=== PATIENT | female | born 1970 | race Caucasian/White ===

== ENCOUNTER 2017-02-28 09:09 | Emergency (ER) | payer OTHER ==
[2017-02-28] MEDS ORDERED: DEXAMETHASONE 10 MG/ML VIAL PO STA (10:37)
[2017-02-28] MEDS ORDERED: CHERRY SYRUP 10 ML UDC PO ONE (10:40)
[2017-02-28] MEDS ORDERED: DEXAMETHASONE 10 MG/ML VIAL ONE (10:40)
== END 2017-02-28 10:56 | disposition home or self-care (01) ==
DX: M54.42 Lumbago with sciatica, left side (principal)
CPT/HCPCS: 99283; A9270

== ENCOUNTER 2017-03-22 11:55 | Outpatient (CLI) | payer OTHER ==
--- NOTE | 2017-03-22 22:04 | MRI Report ---
EXAM: MRI THORACIC SPINE WITHOUT CONTRAST EXAM DATE: 03/22/2017 12:55 PM. CLINICAL HISTORY: Low back pain. COMPARISONS: None. TECHNIQUE: Multiplanar, multisequence T1-weighted and fluid-sensitive sequences of the thoracic spine from C7 to L1 without contrast. Other: None. FINDINGS: There is normal alignment of the thoracic spine. There is a mild decrease in the height of the disk w ith desiccation at T11-T12. The conus terminates at T12-L1 and is normal. There are hemangiomas present within the T6 and T11 vertebral bodies. The thoracic aorta is of normal caliber. There is a hiatal hernia partially in the provided field of view. There is no significant atrophy of the paraspinal musculature at the psoas musculature. The kid neys are without evidence of hydronephrosis. The spleen exhibits normal signal intensities. The right lobe of the liver in the provided field of view exhibits grossly normal signal intensities. T1-T2: There is no significant disk bulge, central or foraminal stenosis. The facets are normal. T2-T3: There is no significant disk bulge, central or foraminal stenosis. The facets are normal. T3-T4: There is no significant disk bulge, central or foraminal stenosis. The facets are normal. T4-T5: There is a minimal central protrusion of the disk without significant central or foraminal robby nosis. There is minimal right facet arthropathy. There is no significant foraminal stenosis. T5-T6: There is no significant disk bulge, central or foraminal stenosis. The facets are normal. T6-T7: There is no significant disk bulge, central or foraminal stenosis. The facets are normal. T7-T8: There is no significant disk bulge, central or foraminal stenosis. The facets are normal. T8-T9: There is no significant disk bulge, central or foraminal stenosis. The facets are normal. T9-T10: There is no significant disk bulge, central or foraminal stenosis. The facets are normal. T10-T11: There is no significant disk bulge, central or foraminal stenosis. The facets are normal. T11-T12: There is a small disk osteophyte complex abutting the sac producing a minimal central canal stenosis. There is a small left facet effusion. There is no significant foraminal stenosis. T12-L1: There is a small disk bulge abutting the sac producing a minimal central canal stenosis. Ther e is no significant foraminal stenosis. IMPRESSION: 1. There is a minimal central protrusion of the disk without significant central or foraminal stenosi s at T4-T5. 2. There is a small disk osteophyte complex at T11-T12 producing a minimal central canal stenosis. 3. There is a small disk bulge at T12-L1 producing a minimal central canal stenosis. 4. There is a moderate to large hiatal hernia. Referring Provider Line: [phone] SITE ID: [id number]
--- NOTE | 2017-03-23 13:11 | MRI Report ---
EXAM: MRI LUMBAR SPINE WITHOUT CONTRAST EXAM DATE: 03/22/2017 12:39 PM. CLINICAL HISTORY: Acute on chronic mid to low back pain radiating into the left thigh. COMPARISON: MRI of the lumbar spine without contrast 01/12/2011. TECHNIQUE: Multiplanar, multisequence T1-weighted and fluid-sensitive sequences of the lumbar spine f rom T12 to S1 without contrast. Other: None. FINDINGS: There is slight accentuation of the normal lumbar lordosis. There is a mild decrease in the height of the disk with desiccation at T11-T12, L1-L2, rkuj-gk-xvcrdm te at L2-L3 and L4-L5. There is associated desiccation at these levels. There is a mixture of Modic type I and type II endplate degenerative change within the L2-L3 and L4-L 5 endplates. The conus terminates at the superior endplate level of L1 and is normal. There is no significant atrophy of the paraspinal musculature and the psoas musculature. The abdomina l aorta is of normal caliber. L1-L2: There is a small disk bulge abutting the sac producing a minimal central canal stenosis. There is no significant foraminal stenosis. There is no significant change at this level. L2-L3: There is a small disk bulge abutting the sac producing a mild central canal stenosis. The face ts are normal. There is mild to moderate left and mild right neural foraminal narrowing. There has be en mild progression of the left foraminal stenosis which previously was mild. L3-L4: There is no significant disk bulge, central or foraminal stenosis. The facets are normal. L4-L5: There is a small disk bulge abutting the sac producing a minimal central canal stenosis. There is minimal right facet arthropathy. There is mild right and minimal left neural foraminal narrowing. There is no significant change at this level. L5-S1: There is a minimal disk bulge abutting the sac without significant central canal stenosis. The re is minimal bilateral facet arthropathy. There is no significant foraminal stenosis. There is no si gnificant change at this level. IMPRESSION: 1. There is a small disk bulge abutting the sac at L2-L3 producing a mild central canal stenosis. The re is a rrfk-ht-ucnxdudf degree of left foraminal stenosis which previously was mild. Therefore there has been slight progression. 2. There is an unchanged small disk bulge producing a minimal central canal stenosis at L1-L2. Likewi se, there is an unchanged minimal central canal stenosis at L4-L5 from small disk bulge abutting the sac. 3. There is an unchanged minimal disk bulge at L5-S1 without significant central canal stenosis. Comment: The following findings are so common in adults without low back pain that while we report th eir presence, they must be interpreted with caution and in the context of the clinical situation. (Re garrison Edwards et al, Spine 2001) Prevalence of findings in patients without low back pain: Disk degeneration (any evidence): 92% Disk desiccation/T2 signal loss: 83% Disk height loss: 56% Disk bulge: 64% Disk protrusion: 32% Annular tear/high intensity zone: 38% [facility] Referring Provider Line: [phone] SITE ID: [id number]
== END 2017-03-22 11:56 | disposition home or self-care (01) ==
LOC: DI 11:55
PROVIDERS: ATTEND Nurse Practitioner Family
DX: M51.36 Other intervertebral disc degeneration, lumbar region (principal); M47.897 Other spondylosis, lumbosacral region; M51.34 Other intervertebral disc degeneration, thoracic region; M51.24 Other intervertebral disc displacement, thoracic region; K44.9 Diaphragmatic hernia without obstruction or gangrene; M47.894 Other spondylosis, thoracic region
CPT/HCPCS: 72146; 72148

== ENCOUNTER 2017-06-13 18:58 | Emergency (ER) | payer OTHER ==
[2017-06-13 19:14] VITALS: BP 165/97
--- NOTE | 2017-06-13 20:17 | XRAY Preliminary Report ---
Exam: XR Ankle 3 View RT IMPRESSION: Normal ankle radiography. [facility] SITE ID: [id number]
--- NOTE | 2017-06-13 20:20 | XRAY Report ---
EXAM: RIGHT ANKLE RADIOGRAPHY EXAM DATE: 06/13/2017 07:56 PM. CLINICAL HISTORY: Trauma. COMPARISON: None. TECHNIQUE: 3 views. FINDINGS: Bones: Normal. No fractures or bone lesions. Joints: Normal. No effusion. No subluxations. The ankle mortise is normally aligned. Soft Tissues: Normal. No soft tissue swelling. IMPRESSION: Normal ankle radiography. [facility] Referring Provider Line: [phone] SITE ID: [id number]
--- NOTE | 2017-06-13 20:56 | ED Physician Documentation ---
PD HPI LOWER EXT INJURY - Stated complaint Stated Complaint: RT ANKLE PX - Chief complaint Chief Complaint: Trauma Ext - History obtained from History obtained from: Patient - History of Present Illness PD HPI LOW EXT INJURY LOCATION: Right, Ankle Type of injury: Twist Where injury occurred: Home Timing - onset: Today (This AM.) Worsened by: Other (weightbearing) Associated symptoms: No: Weakness, Numbness - Additional information Additional information: The patient is a 46-year-old female who presents with right ankle pain after she twisted it when she stumbled on the top step while walking into work this morning. She reports pain with weightbearing. She denies any other injuries. She has been taking Advil and applying ice pack prior to arrival. Review of Systems Constitutional: denies: Fever Nose: denies: Congestion Respiratory: denies: Dyspnea Musculoskeletal: reports: Joint pain (right ankle). 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 - Present Medications Home Medications: Ambulatory Orders Medication Instructions Recorded Confirmed Cholecalciferol (Vitamin D3) 1,000 mg PO DAILY 02/28/17 06/13/17 [Vitamin D3] Cyclobenzaprine [Flexeril] 10 mg PO TID PRN #20 tablet 02/28/17 06/13/17 Ibuprofen 600 mg PO TID PRN 02/28/17 02/28/17 Trazodone HCl 100 mg PO DAILY 02/28/17 06/13/17 - Allergies Allergies/Adverse Reactions: Allergies Allergy/AdvReac Type Severity Reaction Status Date / Time codeine AdvReac Mild Unknown Verified 02/28/17 09:23 - Social History Does the pt smoke?: No Smoking Status: Never smoker Does the pt drink ETOH?: No Does the pt have substance abuse?: Yes - Immunizations Immunizations are current?: Yes - POLST Patient has POLST: No PD ED PE NORMAL - Vitals Vital signs reviewed: Yes (initially hypertensive) - General General: Alert and oriented X 3, Well developed/nourished - HEENT HEENT: Atraumatic - Respiratory Respiratory: No respiratory distress - Derm Derm: No rash - Extremities Extremities: No edema, No calf tenderness / cord, Other (There is tenderness to palpation over the right lateral malleolus. There is no tenderness over the medial malleolus, fifth metatarsal base, or proximal fibula. Distal neurovascular is intact.) - Neuro Neuro: Alert and oriented X 3, No motor deficit, No sensory deficit Results - Vitals Vitals: Oxygen O2 Source Room air - Rads (name of study) right ankle Radiology: Prelim report reviewed, EMP read contemporaneously, See rad report ( Normal ankle radiography.) PD MEDICAL DECISION MAKING - ED course Complexity details: reviewed results, re-evaluated patient, considered differential, d/w patient, d/w family ED course: The patient's presentation is significant for right ankle sprain. There is no evidence of fracture or dislocation on x-ray examination. Treatment in the emergency department included administration of an ankle air splint. Crutches were dispensed. I discussed with her and her family the expected course of injury, symptomatic treatment and outpatient follow-up, as well as potentially worrisome signs or symptoms that should prompt reevaluation in the emergency department. Departure - Departure Disposition: 01 Home, Self Care Clinical Impression: Right ankle sprain Qualifiers: Encounter type: initial encounter Involved ligament of ankle: calcaneofibular ligament Qualified Code(s): S93.411A - Sprain of calcaneofibular ligament of right ankle, initial encounter Condition: Stable Instructions: ED Sprain Ankle W X Ray Follow-Up: HENNA Patel [Provider Group] Comments: Keep your right leg elevated as much the time as possible. Apply ice pack intermittently for the next 3 or 4 days. You can use Advil up to 600 mg 3 times daily for its anti-inflammatory effect. Let pain be your guide to activity level. Follow up with your primary physician within 1-2 weeks. Call to schedule appointment. Return to the emergency department if you develop markedly increasing pain or otherwise worsening symptoms. Discharge Date/Time: 06/13/17 21:00
== END 2017-06-13 21:00 | disposition home or self-care (01) ==
LOC: ED 18:58
DX: S93.411A Sprain of calcaneofibular ligament of right ankle, initial encounter (principal); X50.1XXA Overexertion from prolonged static or awkward postures, initial encounter; Y93.01 Activity, walking, marching and hiking; Y92.009 Unspecified place in unspecified non-institutional (private) residence as the place of occurrence of the external cause
CPT/HCPCS: 99283

== ENCOUNTER 2017-07-11 10:47 | Emergency (ER) | payer OTHER ==
[2017-07-11 11:24] VITALS: BP 139/101
--- NOTE | 2017-07-11 11:58 | XRAY Preliminary Report ---
Exam: XR Shoulder 3 View RT IMPRESSION: Normal shoulder radiography. [facility] SITE ID: [id number]
--- NOTE | 2017-07-11 12:01 | XRAY Report ---
EXAM: RIGHT SHOULDER RADIOGRAPHY EXAM DATE: 07/11/2017 11:46 AM. CLINICAL HISTORY: Injury. COMPARISON: None. TECHNIQUE: 3 views. FINDINGS: Bones: Normal. No fracture or bone lesion. Joints: The glenohumeral and acromioclavicular joints are normal. Soft tissues: The visualized hemithorax is unremarkable. No soft tissue swelling. IMPRESSION: Normal shoulder radiography. [facility] Referring Provider Line: [phone] SITE ID: [id number]
--- NOTE | 2017-07-11 12:54 | ED Physician Documentation ---
History of Present Illness - Stated complaint Stated Complaint: GLF-R SIDE SHOULD,ANKLE,BACK INJ - Chief complaint Chief Complaint: Ext Problem - History obtained from History obtained from: Patient - History of Present Illness Timing: Other (She works at the [employer], she was walking and slipped on a wet floor kind of twisted down onto her right side and injured her right shoulder and her back and reinjured her right ankle. She is able to walk and bear weight. There is no head or neck injury. Her back is more tight than it was a couple of hours ago. 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 - Present Medications Home Medications: Ambulatory Orders Medication Instructions Recorded Confirmed Trazodone HCl 100 mg PO DAILY 02/28/17 07/11/17 Cyclobenzaprine [Flexeril] 10 mg PO TID PRN #20 tablet 07/11/17 HYDROcod/ACETAM 5/325 [[place] 5/325] 1 - 2 ea PO Q6H PRN #15 tablet 07/11/17 - Allergies Allergies/Adverse Reactions: Allergies Allergy/AdvReac Type Severity Reaction Status Date / Time codeine AdvReac Mild Unknown Verified 02/28/17 09:23 - Social History Does the pt smoke?: No Smoking Status: Never smoker Does the pt drink ETOH?: No Does the pt have substance abuse?: Yes - Immunizations Immunizations are current?: Yes - POLST Patient has POLST: No PD ED PE NORMAL - Vitals Vital signs reviewed: Yes - General General: Alert and oriented X 3, No acute distress - HEENT HEENT: PERRL, EOMI - Neck Neck: Supple, no meningeal sign, No bony TTP - Abdomen Abdomen: Non tender - Back Back: No spinal TTP, Other (Some parathoracic muscular tenderness without midline tenderness or limited range of motion.) - Extremities Extremities: Other (Right shoulder and right ankle are nontender, she has full range of the right shoulder and can walk and bear weight without pain.) - Neuro Neuro: Alert and oriented X 3, Normal speech - Psych Psych: Normal mood, Normal affect Results - Vitals Vitals: Vital Signs - 24 hr 07/11/17 11:21 Temperature 36.5 C Heart Rate 71 Respiratory 18 Rate Blood Pressure 139/101 H O2 Saturation 99 Oxygen O2 Source Room air - Rads (name of study) Right shoulder, 3 views Radiology: EMP read contemporaneously (Normal) Departure - Departure Disposition: 01 Home, Self Care Clinical Impression: Contusion of right shoulder Qualifiers: Encounter type: initial encounter Qualified Code(s): S40.011A - Contusion of right shoulder, initial encounter Moderate right ankle sprain Qualifiers: Encounter type: initial encounter Qualified Code(s): S93.401A - Sprain of unspecified ligament of right ankle, initial encounter Back strain Qualifiers: Encounter type: initial encounter Qualified Code(s): S39.012A - Strain of muscle, fascia and tendon of lower back, initial encounter Condition: Good Record reviewed to determine appropriate education?: Yes Instructions: ED Sprain Strain Lumbar Prescriptions: Cyclobenzaprine [Flexeril] 10 mg PO TID PRN #20 tablet PRN Reason: Pain HYDROcod/ACETAM 5/325 [[place] 5/325] 1 - 2 ea PO Q6H PRN #15 tablet PRN Reason: Pain Comments: Call your doctor to arrange a follow-up appointment, make the next available appointment. In the interim, return anytime if worse or if new symptoms develop. Your blood pressure was elevated today on check into the emergency department. This does not mean that you have hypertension, it is a common phenomenon to come to the emergency department and have elevated blood pressure. I recommend that she see your primary care physician within the week to have it rechecked when you are feeling better. Do not drink or drive while taking narcotic pain medication. Note that many narcotic pain relievers also contain Tylenol/acetaminophen. Please ensure that your total dose of acetaminophen from all sources does not exceed 3 g (3000 mg) per day. You may get constipated while on this medication. Take a stool softener such as Colace twice a day while you are on it. Also add an sgea-zgj-hscplak laxative such as senna or MiraLAX on any day that you do not have a bowel movement. If you received a narcotic pain medication or sedative while in the emergency department, do not drive for the next 24 hours. Forms: Activity restrictions
== END 2017-07-11 12:58 | disposition home or self-care (01) ==
LOC: ED 10:47
DX: S40.011A Contusion of right shoulder, initial encounter (principal); S93.401A Sprain of unspecified ligament of right ankle, initial encounter; S39.012A Strain of muscle, fascia and tendon of lower back, initial encounter; W01.0XXA Fall on same level from slipping, tripping and stumbling without subsequent striking against object, initial encounter; Y93.01 Activity, walking, marching and hiking; Y92.148 Other place in prison as the place of occurrence of the external cause; Y99.0 Civilian activity done for income or pay; R03.0 Elevated blood-pressure reading, without diagnosis of hypertension
CPT/HCPCS: 1040M; 73030; 99283

== ENCOUNTER 2019-02-19 13:55 | Emergency (ER) | payer OTHER ==
--- NOTE | 2019-02-19 14:12 | ED Physician Documentation ---
PD HPI FEMALE - Stated complaint Stated Complaint: FEMALE , RETAL BLEEDING - History obtained from History obtained from: Patient - History of Present Illness Timing - onset: How many days ago (3-5) Timing - details: Gradual onset, Still present (more consistent sharp stabbing pain right lower abd the past day.), Waxing and waning Associated symptoms: Abdominal pain, Other (She had been feeling constipated with decreased stool output over the last month or more and had not had a bowel movement for 2-3 days. She states previously she would notice some red blood after bowel movement with wiping. She denies any blood in the last couple of days. She denies pain with wiping.). No: Fever, Pelvic pain, Vaginal bleeding, Vaginal discharge, Dysuria, Urinary frequency Contributing factors: Other (no change in diet.). No: Sexually active Similar symptoms before: Has not had sx before Recently seen: Not recently seen Review of Systems Constitutional: reports: Fatigue. denies: Fever, Chills Nose: denies: Rhinorrhea / runny nose, Congestion Throat: denies: Sore throat Respiratory: denies: Cough GI: reports: Abdominal Pain (LLQ area pain for few days), Nausea, Constipation. denies: Vomiting, Diarrhea Neurologic: reports: Generalized weakness. 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 - Present Medications Home Medications: Ambulatory Orders Medication Instructions Recorded Confirmed Trazodone HCl 100 mg PO DAILY 02/28/17 02/19/19 Cyclobenzaprine [Flexeril] 10 mg PO TID PRN #20 tablet 07/11/17 02/19/19 HYDROcod/ACETAM 5/325 [[place] 5/325] 1 - 2 ea PO Q6H PRN #15 tablet 07/11/17 02/19/19 Disulfiram [Antabuse] 250 mg PO DAILY 02/19/19 02/19/19 Ondansetron Odt [Zofran] 4 mg TL Q6H PRN #10 tablet 02/19/19 Polyethylene Glycol 3350 [Miralax] 17 gm PO DAILY PRN #1 bottle 02/19/19 lamoTRIgine [LaMICtal] 100 mg PO DAILY 02/19/19 02/19/19 - Allergies Allergies/Adverse Reactions: Allergies Allergy/AdvReac Type Severity Reaction Status Date / Time codeine AdvReac Mild Unknown Verified 02/28/17 09:23 - Social History Does the pt smoke?: No Smoking Status: Never smoker Does the pt drink ETOH?: No Does the pt have substance abuse?: Yes - Immunizations Immunizations are current?: Yes - POLST Patient has POLST: No PD ED PE NORMAL - Vitals Vital signs reviewed: Yes - General General: Alert and oriented X 3, No acute distress, Well developed/nourished - HEENT HEENT: Moist mucous membranes, Pharynx benign - Neck Neck: Supple, no meningeal sign, No adenopathy - Cardiac Cardiac: RRR, No murmur - Respiratory Respiratory: Clear bilaterally - Abdomen Abdomen: Normal bowel sounds, Soft, Non distended, No organomegaly, Other (tender RLQ area without percussion nor rebound tenderness. mild local guarding. ) Results - Vitals Vitals: Vital Signs - 24 hr 02/19/19 02/19/19 02/19/19 14:04 15:56 17:02 Temperature 36.8 C Heart Rate 73 67 57 L Respiratory 18 20 12 Rate Blood Pressure 147/98 H 148/95 H 135/79 H O2 Saturation 98 100 100 Oxygen O2 Source Room air - Labs Labs: Laboratory Tests 02/19/19 02/19/19 02/19/19 14:40 14:45 14:45 WBC 6.3 RBC 4.52 Hgb 13.1 Hct 40.2 MCV 88.8 MCH 28.9 MCHC 32.5 RDW 14.9 Plt Count 205 MPV 9.7 Neut # (Auto) 3.7 Lymph # (Auto) 2.0 [place] # (Auto) 0.5 Eos # (Auto) 0.0 Baso # (Auto) 0.0 Absolute Nucleated RBC 0.00 Nucleated RBC % 0.1 Sodium 137 Potassium 3.5 Chloride 99 L Carbon Dioxide 28 Anion Gap 10.0 BUN 8 Creatinine 0.9 Estimated GFR (MDRD) 67 L Glucose 138 H Calcium 9.6 Total Bilirubin 0.6 AST 28 ALT 30 Alkaline Phosphatase 77 Total Protein 7.9 Albumin 4.7 Globulin 3.2 Albumin/Globulin Ratio 1.5 Lipase 40 Urine Color YELLOW Urine Clarity CLEAR Urine pH 7.0 Ur Specific [place] <=1.005 Urine Protein NEGATIVE Urine Glucose (UA) NEGATIVE Urine Ketones NEGATIVE Urine Occult Blood NEGATIVE Urine Nitrite NEGATIVE Urine Bilirubin NEGATIVE Urine Urobilinogen 0.2 (NORMAL) Ur Leukocyte Esterase NEGATIVE Ur Microscopic Review NOT INDICATED Urine Culture Comments NOT INDICATED - Rads (name of study) abd/pelvic CT Radiology: Prelim report reviewed (no acute process seen), See rad report PD MEDICAL DECISION MAKING - ED course Complexity details: reviewed results, considered differential, d/w patient Departure - Departure Disposition: Home, Self Care Clinical Impression: Abdominal pain Qualifiers: Abdominal location: left lower quadrant Qualified Code(s): R10.32 - Left lower quadrant pain Condition: Stable Record reviewed to determine appropriate education?: Yes Instructions: ED Abdominal Pain Unkn Cause Prescriptions: Ondansetron Odt [Zofran] 4 mg TL Q6H PRN #10 tablet PRN Reason: Nausea / Vomiting Polyethylene Glycol 3350 [Miralax] 17 gm PO DAILY PRN #1 bottle PRN Reason: Constipation Comments: Your CT scan does not show an obvious cause for the pain. Presume there is some clumping of stool through the intestine in that area causing some pains. Use a once or twice daily stool softener MiraLAX for the next few days. Use some ibuprofen or naproxen twice daily for inflammation and pain and add Tylenol if needed. Ondansetron if needed for nausea. Recheck if not improved over the next couple of days and return sooner if worsening. Discharge Date/Time: 02/19/19 17:05
[2019-02-19] MEDS ORDERED: SODIUM CHLORIDE 0.9% 1,000 ML IV ONE (14:36)
[2019-02-19] MEDS ORDERED: KETOROLAC 30 MG/ML VIAL IVP STA (14:37)
[2019-02-19 14:49] LABS: BILIRUBIN,URINE NEGATIVE (NEGATIVE); GLUCOSE, URINE (UA) NEGATIVE (NEGATIVE); KETONES,URINE (UA) NEGATIVE (NEGATIVE); LEUKOCYTE ESTERASE, URINE NEGATIVE (NEGATIVE); NITRITE,URINE NEGATIVE (NEGATIVE); OCCULT BLOOD,URINE NEGATIVE (NEGATIVE); PROTEIN,URINE NEGATIVE (NEGATIVE); UROBILINOGEN,URINE 0.2 (NORMAL) E.U./dL (NORMAL)
[2019-02-19 14:52] LABS: CLARITY,URINE CLEAR (CLEAR)
[2019-02-19 15:07] LABS: BASOPHILS % (AUTO) 0.7 %; EOSINOPHILS % (AUTO) 0.3 %; HGB - HEMOGLOBIN 13.1 g/dL (12.0-16.0); LYMPHOCYTES % (AUTO) 32.1 %; MEAN CORPUSCULAR HEMOGLOBIN 28.9 pg (27.0-31.0); MEAN CORPUSCULAR HGB CONC 32.5 g/dL (32.0-36.0); MEAN CORPUSCULAR VOLUME 88.8 fL (81.0-99.0); MEAN PLATELET VOLUME 9.7 fL (7.9-10.8); MONOCYTES # (AUTO) 0.5 10^3/uL (0.0-1.0); NEUTROPHILS # (AUTO) 3.7 10^3/uL (1.5-6.6); NEUTROPHILS % (AUTO) 58.9 %; PLT - PLATELET COUNT 205 10^3/uL (130-450); RED BLOOD COUNT 4.52 10^6/uL (4.20-5.40); RED CELL DISTRIBUTION WIDTH 14.9 % (12.0-15.0); WHITE BLOOD COUNT 6.3 x10^3/uL (4.8-10.8)
[2019-02-19 15:17] LABS: ALBUMIN 4.7 g/dL (3.2-5.5); ALBUMIN/GLOBULIN RATIO 1.5 (1.0-2.2); BILIRUBIN,TOTAL 0.6 mg/dL (0.2-1.0); CALCIUM 9.6 mg/dL (8.5-10.3); CREATININE 0.9 mg/dL (0.4-1.0); TOTAL PROTEIN 7.9 g/dL (6.7-8.2)
[2019-02-19] MEDS ORDERED: IOVERSOL 320 100 ML VIAL IVP ONE ×2 (15:31→16:47)
[2019-02-19] MEDS ORDERED: ONDANSETRON 4 MG/2 ML VIAL IVP STA (15:50)
--- NOTE | 2019-02-19 15:54 | CT Report ---
Reason: LLQ pain for 4-5 days, worsening Procedure Date: 02/19/2019 Accession Number: [id number] / [id number] Procedure: CT - Abdomen/Pelvis W CPT Code: FULL RESULT: EXAM: CT ABDOMEN AND PELVIS EXAM DATE: 02/19/2019 03:36 PM. CLINICAL HISTORY: Left lower quadrant pain for 4-5 days, worsening. COMPARISONS: None. TECHNIQUE: Routine helical CT imaging was performed through the abdomen and pelvis. IV contrast: OPTI 320 100mL. Enteric contrast: No. Reconstructions: Coronal and sagittal. In accordance with CT protocol optimization, one or more of the following dose reduction techniques were utilized for this exam: automated exposure control, adjustment of mA and/or KV based on patient size, or use of iterative reconstructive technique. FINDINGS: Lung Bases: Significant hiatal hernia. Liver: Normal. No masses. Gallbladder/Bile Ducts: Status post cholecystectomy with mild intrahepatic biliary ductal dilation, can be a normal finding in this setting. Spleen: Normal. Pancreas: Normal. Adrenal Glands: Normal. Kidneys: Normal. No masses or hydronephrosis. Peritoneal Cavity/Bowel: Normal. No free fluid, free air or adenopathy. No masses or acute inflammatory process. The appendix is well visualized and normal. Pelvic Organs: Normal. The bladder and visualized pelvic organs are within normal limits. Vasculature: No aneurysms or other significant abnormality. Bones: Pars defect at L5 and degenerative changes at L2-L3 and L4-L5. Other: None. IMPRESSION: The etiology of the left lower quadrant abdominal pain is not identified. [facility]
[2019-02-19] MEDS ORDERED: MINERAL OIL ENEMA 133 ML BOTTLE RC STA (16:00)
[2019-02-19] MEDS ORDERED: DOCUSATE SODIUM 100 MG CAPSULE PO STA (16:13)
[2019-02-19 17:03] VITALS: BP 135/79
== END 2019-02-19 17:05 | disposition home or self-care (01) ==
LOC: ED 13:55
DX: R10.32 Left lower quadrant pain (principal); K44.9 Diaphragmatic hernia without obstruction or gangrene
CPT/HCPCS: 36415; 74177; 80053; 81003; 83690; 85025; 96374; 96375; 99283; A9270; Q9967; 81001; 87086